=== PATIENT | female | born 1955 | race Caucasian/White ===

== ENCOUNTER 2016-05-14 23:33 | Observation (INO) | payer OTHER ==
--- NOTE | 2016-05-14 23:32 | MINORPROC ---
Outpatient History & Physical Chief Complaint: Foreign body in esophagus Present Illness: Is a 60-year-old female who has a piece of pork chops stuck in her throat for the last 24 hours. She is able to swallow saliva. She is initially seen at [facility] where she had a CT scan which was reported to have a foreign body in the proximal esophagus Past History: Hypothyroidism Gastroparesis History: General: WNL, HEENT: WNL, Respiratory: WNL, Cardiovascular: WNL Physical Exam: General: WNL, Chest/Lungs: WNL, Heart: WNL, Abdomen: WNL Impression / Plan: Form body in esophagus Would recommend the patient have an EGD. She'll need a foreign body removed at that time The risk and potential complications of the procedure were discussed with the patient.. They understood this. Also discussed alternatives diagnostic and treatment options. Will get the EGD set up at the first available date. Transfusion: Transfusion Not Anticipated Anesthesia Plans: Sedation ASA Class: Class 2 : Mild Systemic Disease
[~2016-05-14 23:33] MED LIST: LIDOCAINE HCL/PF 2% (20 MG/ML) - 5 ML SYRINGE ONE; Lactated Ringers 1,000 ML PRIMARY IV ONE; MIDAZOLAM 5 MG/1 ML ONE; NORMAL SALINE 10 ML SYRINGE FLUSH IVP PRN; fentaNYL Inj 100 MCG/2 ML VIAL ONE
[2016-05-14] MEDS ORDERED: Lactated Ringers 1,000 ML PRIMARY IV SCH (23:45)
[2016-05-14] MEDS ORDERED: PANTOPRAZOLE IV 40 MG VIAL ONE ×2 (23:52)
--- NOTE | 2016-05-14 23:53 | GEN.OPNOTE ---
EGD Operative Note Surgery Date: 05/14/16 Preoperative Diagnosis: Foreign body in esophagus Postoperative Diagnosis: Esophageal obstruction from foreign body Procedure: Esophagogastroduodenoscopy with removal of foreign body from esophagus Surgeon: Jasper Du MD Anesthesia Provider: César Gonzales CRNA Anesthesia Type: MAC Indications: Patient has a piece of food stuck in her throat Findings: Esophagus: Olympus video EGD scope inserted into the posterior pharynx. In the proximal for esophagus patient had what appeared to be a piece of meat stuck in her esophagus. Using 3 prong grasper remove some of the meat. This allowed us to gently push the remainder food bolus into the stomach. The area had a stricture was erythematous bleeding GE Junction : GE junction at 40 cm from incisors Fundus : Fundus of the stomach appeared be normal Body : Body of the stomach was within normal limits Prepyloric : Prepyloric areas within normal limits Small Intestine : First second third portion the duodenum within normal limits A lubricated flexible upper endoscope was inserted and passed through the esophagus and stomach into the duodenum.
[2016-05-15] MEDS ORDERED: NORMAL SALINE 10 ML SYRINGE FLUSH IVP PRN (00:51)
[2016-05-15] MEDS ORDERED: Pantoprazole Inj 40 MG in Normal Saline Flush 10 ML IVP SCH (09:00)
[2016-05-15 09:18] VITALS: RESP 18; TEMP 98.2
== END 2016-05-15 10:19 | disposition home or self-care (01) ==
LOC: SDSC 23:33 → OPS 23:53 → MED/SURG 05-15 00:23
PROVIDERS: ADMIT Surgery; ATTEND Surgery
DX: T18.128A Food in esophagus causing other injury, initial encounter (principal)
CPT/HCPCS: 43247; 96374; J2704; J3010; J2001; J2250; J3490; J7120